=== PATIENT | male | born 1960 | race Caucasian/White ===

== ENCOUNTER 2018-10-02 10:39 | Emergency (ER) | payer MEDICARE ==
[2018-10-02 11:15] VITALS: RESP 18
--- NOTE | 2018-10-02 12:39 | CT ---
EXAMINATION TYPE: CT brain janki wo con DATE OF EXAM: 10/02/2018 COMPARISON: None HISTORY: Numbness in hand CT DLP: 1392.5 mGycm, Automated exposure control for dose reduction was used. CONTRAST: Patient injected with 0 mL of Isovue 300. CT of the brain is performed utilizing 3 mm thick sections through the posterior fossa and 3 mm thick sections through the remaining calvarium. Study is performed within 24 hours of arrival to the hospital. No abnormal hyperdensity is present to suggest an acute intracranial hemorrhage. No mass lesion is evident. No acute infarcts are evident. Ventricles and sulci are appropriate for the patient age. Paranasal sinuses and mastoid air cells within the [id number] are clear. IMPRESSIONS: 1. Normal CT brain. CT cervical spine. COMPARISON: None CT of the cervical spine is performed in the axial plane at 2 mm thick sections. Reconstructed image s in the coronal, and sagittal plane are reviewed on the computer. No acute fractures are evident. Vertebral body alignment is straightened lateral projection There is narrowing of disc height throughout the cervical spine greater C5-6 C6-7 levels Vertebral body heights are preserved. No spinal canal stenosis is evident. Endplate spurring is present C5-6 C6-7. Uncovertebral joint hypertrophy and facet hypertrophy is pres ent with severe foraminal stenosis IMPRESSIONS: 1. Severe bilateral foraminal stenosis due to uncovertebral joint hypertrophy facet hypertrophy this appears greatest at C5-6 C6-7 but is present to severe degree also on the left at C3-4. Additional ar eas of more moderate narrowing are present. 2. No acute osseous fractures evident.
--- NOTE | 2018-10-02 12:52 | ED ---
Extremity Problem HPI - General Chief complaint: Extremity Problem,Nontraumatic Stated complaint: Numbness in hands Time Seen by Provider: 10/02/18 11:20 Source: patient Mode of arrival: ambulatory Limitations: no limitations - History of Present Illness Initial comments: 58-year-old male presents today for chief complaint of bilateral sharp shooting pain down the arms. Patient states he fell in June and since has had bilateral sharp shooting pain down the arms. He states that he can no longer take the pain he has a appointment next week with neurology Dr. Hedrick. He states that he thinks he may have injury of the neck. Patient denies any headache dizziness nausea vomiting diplopia visual changes muscle weakness of the upper extremities or loss of sensation he states is a pain and sometimes feels like its falling asleep. Remaining review of systems negative upon arrival patient appears well no signs of acute distress. Patient has history of IV drug use, history of cancer fever chills night sweats. - Related Data Home Medications Medication Instructions Recorded Confirmed No Known Home Medications 10/02/18 10/02/18 Allergies Allergy/AdvReac Type Severity Reaction Status Date / Time No Known Allergies Allergy Verified 10/02/18 11:24 Review of Systems ROS Statement: Those systems with pertinent positive or pertinent negative responses have been documented in the HPI. ROS Other: All systems not noted in ROS Statement are negative. Past Medical History Past Medical History: No Reported History History of Any Multi-Drug Resistant Organisms: None Reported Past Surgical History: Hernia Repair Additional Past Surgical History / Comment(s): Ulcer surgery, espohageal surgery Past Psychological History: No Psychological Hx Reported Smoking Status: Never smoker Past Alcohol Use History: None Reported Past Drug Use History: None Reported General Exam - General Exam Comments Initial Comments: General: The patient is awake and alert, in no distress, and does not appear acutely ill. Eye: +3 mm pupils are equal, round and reactive to light, extra-ocular movements are intact. No nystagmus. There is normal conjunctiva bilaterally. No signs of icterus. Ears, nose, mouth and throat: There are moist mucous membranes and no oral lesions. Neck: The neck is supple, there is no tenderness or JVD. Cardiovascular: There is a regular rate and rhythm. No murmur, rub or gallop is appreciated. Respiratory: Lungs are clear to auscultation, respirations are non-labored, breath sounds are equal. No wheezes, stridor, rales, or rhonchi. Gastrointestinal: Soft, non-distended, non-tender abdomen without masses or organomegaly noted. There is no rebound or guarding present. No CVA tenderness. Bowel sounds are unremarkable. Musculoskeletal: Positive Spurling's bilaterally. Normal ROM of the UE b/l, no tenderness. Strength 5/5 of the UE b/l. Sensation intact of the UE b/l. Radial pulses equal bilaterally 2+. She can make fingers crossed thumbs-up finger opposition okay sign extend at the wrist bilaterally.. Neurological: A&O x 3. CN II-XII intact, There are no obvious motor or sensory deficits. Coordination appears grossly intact. Speech is normal. Skin: Skin is warm and dry and no rashes or lesions are noted. Psychiatric: Cooperative, appropriate mood & affect, normal judgment. Limitations: no limitations Course Vital Signs 10/02/18 10/02/18 11:12 13:49 Temperature 98.2 F 98.1 F Pulse Rate 74 76 Respiratory 18 18 Rate Blood Pressure 154/103 157/87 O2 Sat by Pulse 99 98 Oximetry Medical Decision Making - Medical Decision Making 58-year-old male presenting for sharp shooting pain down the arms bilaterally. He has positive Spurling test of the cervical spine. Patient has history of trauma in June. CT revealed bilateral significant foraminal narrowing of the cervical spine. This is consistent with patient's radicular like symptoms. Patient has no strength deficits he is no loss of sensation. At this time feel patient is stable for discharge with outpatient neurology and neurosurgical evaluation. Patient is agreeable care plan at discharge at this time. Patient was discharged after dose of morphine and is agreeable with care plan and return parameters. Discussed case with attending provider Dr Diaz who is agreeable to plan of care and discharged today. Disposition Clinical Impression: Radiculopathy, Cervical spine degeneration Disposition: HOME SELF-CARE Condition: Good Instructions (If sedation given, give patient instructions): Cervical Radiculopathy (ED) Additional Instructions: Please use medication as discussed. Please follow-up with family doctor in the next 2 days, follow up with Dr. Hedrick on . Recommend surgical evaluation as well. Please return to emergency room if the symptoms increase or worsen or for any other concerns. Is patient prescribed a controlled substance at d/c from ED?: No Referrals: Shorty Belle MD [Primary Care Provider] - 1-2 days Talita Jones DO [Doctor of Osteopathic Medicine] - 1-2 days Time of Disposition: 13:23
[2018-10-02] MEDS ORDERED: MORPHINE SULFATE 4 MG/ML SYRINGE IM STA (13:22)
[2018-10-02 13:50] VITALS: BP 157/87; PULSE 76; TEMP 98.1
== END 2018-10-02 13:49 | disposition home or self-care (01) ==
LOC: EC 10:39
DX: M48.02 Spinal stenosis, cervical region (principal); M47.22 Other spondylosis with radiculopathy, cervical region
CPT/HCPCS: 72125; 70450; 99284; 96372; J2270

== ENCOUNTER → 2018-10-10 | Outpatient (CLI) | payer MEDICARE ==
--- NOTE | 2018-10-10 23:17 | MR ---
"EXAMINATION TYPE: MR cspine/tspine/lspine wo con DATE OF EXAM: 10/10/2018 COMPARISON: CT cervical spine from 8 days ago. HISTORY: Myelopathy, ataxia, falling hyperreflexia all pertinent order. Headaches with numbness and p ain for a few months into both arms and fingers. Fall injury a few months ago. Low back pain for a co uple months into right buttocks and thigh per patient. TECHNIQUE: Multiplanar, multisequence imaging of the cervical, thoracic, and lumbar spine are all per formed without IV contrast. FINDINGS: C-SPINE: FINDINGS: Sagittal images of the cervical spine show the craniocervical junction to appear within nor mal limits. The cervical and upper thoracic spinal cord shows AP diameter narrowing with increased s ignal C4-C5 level as there is effacement along the anterior and posterior aspects. Vertebral alignme nt is stable and straightened. There is slight grade 1 retrolisthesis of C5 on C6 and C6 on C7 redem onstrated. The vertebral body heights remain normal. Moderate disc space narrowing C5-C6 and C6-C7 le vels is redemonstrated.. The bone marrow signal intensity is within normal limits. Axial images at the C2-C3 level shows right-sided uncovertebral facet spurring causing inferior advan carol right-sided neural foraminal narrowing. Axial images at the C3-C4 level show left-sided uncovertebral facet degenerative changes and right pa racentral/foraminal spur disc complex, there is moderate left and advanced right-sided neural foramin al narrowing. Axial images at C4-C5 level due to posterior spur disc complex causing spinal canal stenosis and abno rmal cord signal with advanced bilateral neural foraminal narrowing as there is uncovertebral facet s purring also present. Axial images at C5-C6 level show broad-based posterior spur disc complex effacing anterolateral theca l sac and causing moderate to advanced bilateral neural foraminal narrowing with additional significa nt spinal canal effacement. Axial images at C6-C7 level shows broad-based posterior disc protrusion effacing anterior thecal sac and causing moderate to advanced left greater than right bilateral neural foraminal narrowing. Axial images at the C7-T1 level show posterior disc herniation mildly effacing anterior thecal sac an d causing mild bilateral neural foraminal narrowing. IMPRESSION: Straightening of cervical spine with multilevel degenerative changes. Attention to C4-C5 level where there is cord compression noted. T-SPINE: FINDINGS: Spinal cord shows normal course, caliber, and signal as it courses the thoracic spine. Godfrey tebral body heights and alignment are satisfactory. There are posterior disc herniations mildly effac ing the anterior thecal sac at T2-T3 and T3-T4 levels on sagittal image 9. There is a larger posterio r disc herniation effacing anterior thecal sac at T11-T12 level sagittal image 8. Bone marrow signal intensity is maintained. There is mild multilevel anterior spurring seen. Review of the axial images shows additional right paracentral disc protrusion effacing anterolateral thecal sac T4-T5 level axial image 9. There is right paracentral disc protrusion effacing the anterol ateral thecal sac T5-T6 level axial image 6. There is left paracentral disc protrusion effacing ventr al thecal sac T6/T7 level axial image 2. There is a larger left paracentral/foraminal disc protrusion effacing and 12 thecal sac and causing a sided neural foraminal narrowing T7-T8 level axial image 17 . There is effacement of the anterolateral thecal sac bilaterally at T9-T10 level axial image 11. The re is broad disc protrusion with mild facet degenerative changes and ligamentum flavum hypertrophy ef facing the anterior and posterior lateral thecal sac at T11-T12 level axial image 5. No suspicious incidental findings in the upper abdomen or visualized thorax are noted. IMPRESSION: Mild to moderate multilevel anterior spurring with multilevel disc herniations as detaile d above. Most prominent findings felt present T11-T12 level. L-SPINE: Sagittal images of the lumbar spine show vertebral body heights and alignment to appear satisfactory. There is multilevel disc desiccation. There is mild disc space narrowing L3-L4 level The conus medu llaris is normal in position and signal ending inferior L1 level. The bone marrow signal intensity i s within normal limits. Axial images show and the T12-L1 and L1-L2 levels to appear within normal limits. Axial images at the L2-L3 level shows mild facet degenerative changes bilaterally mildly effacing pos terior lateral thecal sac with mild broad disc bulge mildly effacing anterior thecal sac. There is mi ld bilateral anterior inferior neural foraminal narrowing. Axial images at the L3-L4 level show [id number] facet degenerative changes and ligament flavum hypertrophy. There is mild to moderate broad disc bulge mildly effaces the anterior thecal sac on axi al image 13. There is mild to moderate bilaterally inferior neural foraminal narrowing at this level identified. Axial images at the L4-L5 level shows moderate facet degenerative changes and ligamentum flavum hyper trophy. This moderate broad disc bulge minimally effacing anterior thecal sac. There is [id number] ate bilateral neural foraminal narrowing, left greater than right. Axial images at the L5-S1 level [id number] facet degenerative changes bilaterally. Spinal canal is preserved. Bilateral neural foramina are patent. No suspicious incidental retroperitoneal findings are seen. IMPRESSION: Multilevel degenerative changes most prominent L2-L3 through the L4-L5 levels as detailed above. A Yellow level critical message alert has been initiated for Norbert Hedrick DO via the [employer] 36 0 | Critical Results System on 10/10/2018 11:14 PM. This message alert has been sent to Norbert Hedrick DO via the preferences provided by the clinician for the receipt of Rad[facility] Critical Findings. [facility] [id number]."
== END ==
LOC: RADMRIMAIN 19:46
PROVIDERS: ATTEND Psychiatry & Neurology Neurology
DX: M47.12 Other spondylosis with myelopathy, cervical region (principal); M48.061 Spinal stenosis, lumbar region without neurogenic claudication; M47.816 Spondylosis without myelopathy or radiculopathy, lumbar region; G95.29 Other cord compression
CPT/HCPCS: 72141; 72146; 72148

== ENCOUNTER 2018-11-05 07:36 | Day surgery (SDC) | payer MEDICARE ==
[2018-11-03 09:25] VITALS: BMI 29.2
[~2018-11-05 07:36] MED LIST: BACITRACIN 50,000 UNIT, POLYMYXIN B 500,000 UNIT in SODIUM CHLORIDE 0.9% IRRIGATIO 1,00... IRRIGATION ONE; DEXAMETHASONE SOD PHOSPHATE 10 MG/ML 1 ML VIAL IV ONE; LIDOCAINE 1% 20 ML VIAL (10MG/ML) FOR IV START INTRADERMA PRN; SCOPOLAMINE 1.5MG/72HR PATCH TRANSDERM ONE; ceFAZolin IN SWFI 2 GM/20 ML SYRINGE IVP ONE
[2018-11-05] MEDS: LACTATED RINGERS 1,000 ML IV SCH (08:16)
[2018-11-05] MEDS: ONDANSETRON 4 MG/2 ML VIAL IVP ONE ×2 (08:17→11:43)
[2018-11-05] MEDS ORDERED: ePHEDrine SULFATE/0.9% NACL/PF 50 MG/5 ML SYRINGE IV ONE (08:24)
[2018-11-05] MEDS ORDERED: MIDAZOLAM 2 MG/2 ML VIAL ONE (08:24)
[2018-11-05] MEDS ORDERED: PROPOFOL 10 MG/ML 20 ML VIAL IV ONE (08:24)
[2018-11-05] MEDS ORDERED: SUCCINYLCHOLINE CHLORIDE VIAL 200 MG/10 ML VIAL IV ONE (08:24)
[2018-11-05] MEDS ORDERED: KETAMINE 10 MG/ML 20 ML VIAL ONE (08:24)
[2018-11-05] MEDS ORDERED: fentaNYL (PF) 50 MCG/ML 2 ML AMP ONE (08:24)
[2018-11-05] MEDS ORDERED: LIDOCAINE 1% INJ 10MG/ML (20 ML MDV) ONE (08:24)
[2018-11-05] MEDS ORDERED: DEXAMETHASONE SOD PHOS (MDV) 100 MG/10 ML VIAL ONE (08:24)
[2018-11-05] MEDS ORDERED: GELATIN SPONGE,ABSORB (LARGE) 1 EACH SPONGE TOPICAL ONE (09:00)
[2018-11-05] MEDS ORDERED: LIDOCAINE 0.5%-EPI 1:200,000 50 ML VIAL SQ ONE (09:00)
[2018-11-05] MEDS ORDERED: THROMBIN (BOVINE) 5,000 UNIT VIAL TOPICAL ONE (09:00)
[2018-11-05] MEDS ORDERED: HYDROmorphone 0.5 MG/0.5 ML SYRINGE IVP PRN (11:10)
[2018-11-05] MEDS ORDERED: ONDANSETRON 4 MG/2 ML VIAL IVP PRN (11:10)
[2018-11-05] MEDS ORDERED: HYDROmorphone 1 MG/ML 1 ML SYRINGE IVP PRN (11:10)
[2018-11-05] MEDS ORDERED: ACETAMINOPHEN TAB 325 MG TAB PO PRN (11:10)
--- NOTE | 2018-11-05 11:17 | P.OP ---
Date of Procedure: 11/05/18 Preoperative Diagnosis: Cervical myelopathy, cervical myelomalacia, upper extremity weakness, upper extremity radiculopathy, severe cervical stenosis, herniated disc C4 5 C5 6 C6 7, degenerative disc disease, neck pain Postoperative Diagnosis: Same Anesthesia: GETA Pathology: none sent Condition: stable Disposition: PACU Description of Procedure: BRIEF OPERATIVE NOTE Preoperative Diagnosis:Cervical myelopathy, cervical myelomalacia, upper extremity weakness, upper extremity radiculopathy, severe cervical stenosis, herniated disc C4 5 C5 6 C6 7, degenerative disc disease, neck pain Postoperative Diagnosis:Cervical myelopathy, cervical myelomalacia, upper extremity weakness, upper extremity radiculopathy, severe cervical stenosis, herniated disc C4 5 C5 6 C6 7, degenerative disc disease, neck pain Procedure: Anterior cervical decompression with discectomy and fusion C4 5 C5 6 C6 7 Placement of interbody graft C4 5 C5 6 C6 7 Removal of large anterior cervical osteophytes Application of anterior cervical plate C4 5 C5 6 C6 7 Surgeon: Dr. Jones Bookkeeping Machine Operator: Mauro BARAJAS who is present throughout the entire the case persistence during positioning, dissection, exposure, visualization, and all crucial elements of the case as well as closure. Anesthesia: General anesthesia per Dr. Delatorre Estimated blood loss: Approximately 100 mL Complications: None apparent Components implanted: K2M Sevier anterior cervical plate system with screws and Vikos interbody allograft bone graft Disposition: To recovery room in good stable condition. OPERATIVE INDICATIONS The patient has had long-standing issues in their neck and upper extremities. He was having significant worsening at his neck and upper extremities and was having worsening problems with his function and dexterity in his upper extremities. He was having some trouble with his gait and balance as well. He was having weakness in his upper extremities pain. He is having worsening pain in his neck and bilateral upper extremities worse on the right than left. He was evaluated and found to have evidence of severe cervical stenosis at C4 5 C5 6 and C6 7 with disc herniation and evidence of myelomalacia at his cervical spine which correlated with his findings of a lot of the on his exam. He was having worsening symptoms despite conservative care. The patient has been through conservative treatment. We discussed various treatment options including surgery, and the patient wishes to proceed with surgery We discussed the risk, patient's alternatives and benefits of surgery including but not limited to, risk of bleeding risk of infection, risk of need for further surgery, risk of decreased, loss of motion, muscle function, malunion nonunion, hardware failure, nerve damage, paralysis, heart attack, and . OPERATIVE SUMMARY After discussing all the risks, patient alternatives and benefits at length, the patient elected to proceed with surgical intervention, signed informed consent, and presented for their procedure. The patient was seen and examined in the preoperative holding area and the surgical site was marked. The patient was given antibiotics and brought to the operating room. The patient was positioned on the operating room table in a supine position being careful to pad any bony prominences and pressure points. The patient was sedated and intubated by anesthesia in standard fashion. Once the airway and C- spine were stabilized the patient's arms were padded and tucked at her side, with her shoulders gently taped. The head was placed in a donut pad with the neck in good neutral alignment and position. We were careful to maintain the patient's cervical spine and good neutral alignment and position throughout. The patient was prepped and draped in a normal standard fashion. An appropriate timeout and keystone protocol performed. We were able to proceed with the surgery. The local wound area was infiltrated with local anesthetic. An incision was made transversely approximately 2-1/2 cm over the appropriate levels at C5-6. Dissection was taken down subcutaneously to the level of the pl atysma which was split in line with its fibers. Dissection was taken with a carotid approach, with the trachea and esophagus medial and the carotid sheath laterally. We dissected down to the anterior surface of the vertebral bodies at C4 5 6 and 7. Intraoperative x-ray was taken which showed a marker at the appropriate level at C4 5. With the appropriate level positively confirmed, we were able to proceed with discectomy at the appropriate levels. I started at C4 5 and then moved to C5 6 and then C6 7. There are large osteophytes at C56 and C6 7 which had to be taken down as well. All of the operative levels were exposed appropriately. The patient had all their twitches back, and there was no evidence of recurrent laryngeal issue. The wound was copiously irrigated and suctioned dry as had been done periodically throughout the case. At the appropriate level/levels, I established an annulotomy with an 11 blade scalpel. A discectomy was performed with a combination of pituitary rongeurs, curettes, a high-speed bur, and Kerrison rongeurs. There was severe disc degeneration at each levels with complete or near-complete disc loss and large posterior disc herniation and stenosis. The posterior longitudinal ligament was taken down as were any posterior osteophytes. This gave good central and bilateral foraminal decompression. There is no evidence of any dural tear or leak. The endplates were prepared with a high-speed bur. With the endplates in good parallel position, I was able to size for the appropriate size interbody graft. The wound was irrigated and suctioned dry the graft was prepared and malleted into position. It had good alignment and position with the anterior surface flush with the anterior surface of the vertebral bodies. This was done similarly the appropriate levels at C4 5 C5 6 and C6 7. With the grafts intact, I was able to measure and contour and appropriate sized plate. The plate was positioned at the midline over the appropriate levels at C4 5 6 and 7. Screw holes were established with a hand drill and drill guide. Screws were placed in good alignment and position with excellent bony purchase. They were seated under the locking device. The construct was checked and found to be stable. Intraoperative x-ray was taken which showed good alignment and position of the implants at the appropriate levels. There was no evidence of any dural tear or leak. Good hemostasis was maintained. The wound was copiously irrigated and suctioned dry as had been done periodically throughout the case. The platysma was closed with absorbable suture. The subcutaneous tissue was closed. The subcuticular tissue was closed with absorbable suture. The wound was cleaned and dried and dressed appropriately. A soft cervical collar was placed appropriately. The patient was woken up by anesthesia, extubated, transferred back gently to their hospital bed and brought to the recovery room in good stable condition. The patient will be admitted to the hospital for appropriate postoperative care, medical management and monitoring. We will continue to follow them closely about the postoperative course.
[2018-11-05] MEDS: HYDROmorphone 0.5 MG/0.5 ML SYRINGE IVP PRN ×2 (11:43→11:51)
--- NOTE | 2018-11-05 12:52 | XR ---
Cervical spine HISTORY: Needle placement Single lateral cervical spine submitted. Endotracheal tube is noted incidentally. There are overlying probes and leads. There is a needle present at the intervertebral disc level of C4-5. Degenerative d isc changes are present in the cervical spine. IMPRESSION: Orthopedic localization.
[2018-11-05] MEDS: SODIUM CHLORIDE 0.9% 1,000 ML IV SCH ×2 (13:45→23:11)
--- NOTE | 2018-11-05 14:20 | XR ---
Lateral cervical spine HISTORY: Anterior cervical fusion and discectomy Correlation to prior exam same dated earlier time Single lateral view of the cervical spine Patient is status post anterior cervical fusion and discectomy at C4-C7, there are intervertebral spa cing blocks present. There is anatomic alignment. Endotracheal tube noted incidentally. IMPRESSION: Orthopedic follow-up.
[2018-11-05] MEDS: ceFAZolin IN SWFI 2 GM/20 ML SYRINGE IVP SCH ×2 (16:16→23:11)
[2018-11-05] MEDS: BENZOCAINE/MENTHOL LOZENG 1 EACH LOZENGE MUCOUS MEM PRN ×2 (16:20→20:13)
[2018-11-06 01:31] VITALS: RESP 18
[2018-11-06] MEDS: HYDROcodone/APAP 5-325MG 1 EACH TAB PO PRN ×2 (07:11→13:51)
[2018-11-06] MEDS: LACTATED RINGERS 1,000 ML IV SCH (07:16)
[2018-11-06 08:47] VITALS: BP 110/70; PULSE 70; TEMP 98.2
[2018-11-06] MEDS ORDERED: SENNOSIDES-DOCUSATE SODIUM 1 EACH TAB PO SCH (09:00)
--- NOTE | 2018-11-06 11:33 | P.DS ---
Providers Date of admission: 11/05/18 Attending physician: Talita Jones Primary care physician: [facility] Hospital Course: The patient presented on the day of admission as per their operative note. He had severe cervical stenosis with cervical myelopathy and myelomalacia and underwent anterior cervical decompression with discectomy and fusion C4 5 C5 6 and C6 7 as per his operative note. He feels his arms have made some improvement already. He is sore at the base of his neck as expected. He is able tolerate his soft and regular diet. He is been ambulatory around the room. Physical Exam The incision site is clean dry and intact. There is no erythema no drainage. There is no purulence no evidence of infection. His neck is soft and supple. He has good motion in his neck. The incision is healing nicely without any drainage. There is no significant swelling. Abdomen soft and nontender. Chest has good excursion with deep inspiration and expiration. The patient has active and passive range of motion intact at the upper and lower extremities. There is no acute change in neurologic status. He seems to move his arms better overall and he feels he has good motion results weakness at his upper extremity is on the right side in particular. Hospital Course Postoperative day #1 status post anterior cervical decompression and discectomy for his severe cervical myelopathy and myelomalacia with cervical stenosis and degenerative disc disease with upper extremity radiculopathy weakness. The patient has been making good progress postoperatively. They have completed the prophylactic antibiotics without any signs or symptoms of infection. The patient has been able to advance their diet, and is tolerating diet adequately. The pain was initially controlled with IV medications and is now controlled appropriately with oral medications. The patient has been able to increase their mobilization. The patient has progressed appropriately. I think they are in good stable condition for discharge today. They will be sent home with appropriate prescriptions. I answered their questions to the best of my ability in a language that they can understand and they are agreeable with the plan. They will follow up as directed in approximately 2 weeks or sooner if he is having any problems. Patient Condition at Discharge: Good Plan - Discharge Summary Discharge Rx Participant: Yes New Discharge Prescriptions: New Acetaminophen with Codeine [Tylenol w/codeine #3] 1 - 2 tab PO Q6H PRN #24 tab PRN Reason: Pain No Action Acetaminophen [Tylenol] 1,500 mg PO Q8H Discharge Medication List Acetaminophen [Tylenol] 1,500 mg PO Q8H 11/03/18 [History] Acetaminophen with Codeine [Tylenol w/codeine #3] 1 - 2 tab PO Q6H PRN #24 tab 11/06/18 [Rx] Follow up Appointment(s)/Referral(s): Talita Jones DO [Doctor of Osteopathic Medicine] - 11/18/18 1:00 pm [facility],Equipment [NON-STAFF] - Shorty Belle MD [Primary Care Provider] - 1 Week (office is closed on . Patient can just walk in) [facility], [NON-STAFF] - 1 Week Activity/Diet/Wound Care/Special Instructions: [facility] will deliver walker to the bedside before discharge. Keep site clean. May shower with waterproof Tegaderm intact. Do not soak in a tub. After 72 hours postoperatively, patient May remove dressing and then may shower with area uncovered. Leave Steri-Strips intact and allow them to fray off on their own. May ambulate as tolerated. Avoid heavy or rigorous activity. No repetitive bending twisting or lifting. No overhead work. Discharge Disposition: HOME SELF-CARE
[2018-11-06] MEDS: BENZOCAINE/MENTHOL LOZENG 1 EACH LOZENGE MUCOUS MEM PRN (13:51)
== END 2018-11-06 14:41 | disposition home or self-care (01) ==
LOC: OR 07:36 → 4SSUR 12:31 → OR 11-06 14:41
PROVIDERS: ATTEND Orthopaedic Surgery Orthopaedic Surgery of the Spine
DX: M48.02 Spinal stenosis, cervical region (principal); G95.89 Other specified diseases of spinal cord; M50.121 Cervical disc disorder at C4-C5 level with radiculopathy; M50.021 Cervical disc disorder at C4-C5 level with myelopathy; R26.81 Unsteadiness on feet; Z87.891 Personal history of nicotine dependence; Z79.891 Long term (current) use of opiate analgesic
CPT/HCPCS: 86900; 86901; 84132; 86850; 72020; 22551; 22552 ×2; 20931; 22845; C1713 ×2; C1762 ×3; J2250; J0330; J2405; J2001; J3010; J1100; J2704; J1170; J0690